=== PATIENT | male | born 1990 | race Two or more races ===

== ENCOUNTER → 2023-09-18 | Outpatient (CLI) | payer MEDICAID, OTHER ==
[2023-09-18 13:08] LABS: HEMOGLOBIN A1c 5.8 % (4.0-6.0)
[2023-09-18 13:19] LABS: CHOLESTEROL LEVEL 179 MG/DL (<200); CHOLESTEROL RISK RATIO 4.54 (<5); HDL CHOLESTEROL 39.4 MG/DL (>40); LDL CHOLESTEROL 121.8 MG/DL (<100); NON-HDL-C 139.6 MG/DL; TRIGLYCERIDES LEVEL 89 MG/DL (<150)
[2023-09-18 13:49] LABS: HEPATITIS B SURFACE ANTIBODY POSITIVE (POSITIVE)
[2023-09-18 13:59] LABS: HEPATITIS C VIRUS ABY INDEX 0.03 INDEX (<0.8)
[2023-09-18 15:28] LABS: GC DNA AMPLIFICATION NEGATIVE (NEGATIVE)
[2023-09-18 15:29] LABS: GC DNA AMPLIFICATION NEGATIVE (NEGATIVE)
== END ==
LOC: M PLALAB 11:25 → EDBD 11:25
PROVIDERS: ATTEND Internal Medicine Infectious Disease
DX: B20 Human immunodeficiency virus [HIV] disease (principal)